=== PATIENT | male | born 1955 | race Caucasian/White ===

== ENCOUNTER 2017-09-06 10:12 | Inpatient (IN) | payer SELFPAY ==
[2017-09-06] VITALS (10 sets, daily range): BP systolic 150–211; BP diastolic 70–123; PULSE 68–91; RESP 17–19; TEMP 98–99; O2SAT 94–96
[~2017-09-06] VITALS: Ht 162.6 cm; Wt 94.5 kg
[~2017-09-06 10:12] MED LIST: ADVI200C9
--- NOTE | 2017-09-06 10:28 | PD ---
HPI Chief Complaint: Head Injury Time Seen by Provider: 10:13 Travel History International Travel<30 days: No Contact w/Intl Traveler<30days: No Traveled to known affect area: No History of Present Illness HPI This patient was found by his sister lying supine on the floor of their home. Patient drinks at least a case of beer daily. He did not drink today but drank yesterday. He does not know what happened to him or why he fell. He complains of headache. He denies blood thinners or aspirin therapy. Symptoms are severe. He is brought in emergently by paramedics. This fall was unwitnessed. No alleviating factors. Symptoms exacerbated by his alcoholism. Duration 1 hour. PFSH Past Medical History Autoimmune Disease: No Bipolar Disorder: Yes Hepatitis: Yes (HEP C) Hypertension: Yes ?: Not Past Surgical History Abdominal Surgery: Yes (SPLEEN REMOVED) Cardiac Surgery: No Ear Surgery: No Endocrine Surgery: No Eye Surgery: No Genitourinary Surgery: No Gynecologic Surgery: No Oral Surgery: No Thoracic Surgery: No Social History Alcohol Use: Yes (6 PK PER DAY X 40 YEARS) Tobacco Use: No Substance Use: Yes (HX COCAINE & CRACK (NOT TOO LONG AGO)) Allergies-Medications (Allergen,Severity, Reaction): Coded Allergies: meperidine (Unverified Allergy, Severe, Nausea/Vomiting, 09/06/17) Reported Meds & Prescriptions Reported Meds & Active Scripts Active No Active Prescriptions or Reported Medications Review of Systems General / Constitutional: No: Fever Eyes: No: Visual changes HENT: Positive: Headaches Cardiovascular: No: Chest Pain or Discomfort Respiratory: No: Shortness of Breath Gastrointestinal: No: Abdominal Pain Genitourinary: No: Dysuria Musculoskeletal: No: Pain Skin: No Rash Neurologic: Positive: Headache, No: Weakness Psychiatric: Positive: Substance Abuse, No: Depression Endocrine: No: Polydipsia Hematologic/Lymphatic: No: Easy Bruising Physical Exam Narrative GENERAL: Well-nourished, well-developed patient with headache and head injury and some lethargy. SKIN: Focused skin assessment reveals no rash and nodules. Skin is Warm and dry. HEAD: Has a swollen area with abrasion on the left forehead. Normocephalic. EYES: Pupils equal and round. No scleral icterus. No injection or drainage. ENT: No nasal bleeding or discharge. Mucous membranes pink and moist. Poor dentition. He's got ecchymosis to the tongue. NECK: Trachea midline. No JVD. C-collar maintained CARDIOVASCULAR: Regular rate and rhythm. No murmur appreciated. RESPIRATORY: No accessory muscle use. Clear to auscultation. Breath sounds equal bilaterally. GASTROINTESTINAL: Abdomen soft, non-tender, nondistended. Hepatic and splenic margins not palpable. MUSCULOSKELETAL: No obvious deformities. No clubbing. No cyanosis. No edema. NEUROLOGICAL: Awake and answering questions but a bit lethargic. No obvious cranial nerve deficits. Motor grossly within normal limits. Normal speech. GCS 15 PSYCHIATRIC: Appropriate mood and affect; insight and judgment poor . Data Data Last Documented VS Vital Signs Date Time Temp Pulse Resp B/P (MAP) Pulse Ox O2 Delivery O2 Flow Rate FiO2 09/06/17 12:00 71 186/105 (132) 09/06/17 10:23 17 96 Nasal Cannula 2.00 09/06/17 10:14 98.0 Orders Orders Iv Access Insert/Monitor (09/06/17 10:20) Complete Blood Count With Diff (09/06/17 10:20) Comprehensive Metabolic Panel (09/06/17 10:20) Prothrombin Time / Inr (Pt) (09/06/17 10:20) Act Partial Throm Time (Ptt) (09/06/17 10:20) Alcohol (Ethanol) (09/06/17 10:20) Ct Brain W/O Iv Contrast(Rout) (09/06/17 ) Ct Cerv Spine W/O Contrast (09/06/17 ) Chest, Single Ap (09/06/17 ) Pelvis, Ap Only (Routine) (09/06/17 ) Service Center Technician / Telemetry [email or web address] (09/06/17 10:20) Oximetry (09/06/17 ) Oxygen Administration (09/06/17 10:20) Electrocardiogram (09/06/17 ) Labetalol Inj (Trandate Inj) (09/06/17 11:30) Lorazepam Inj (Ativan Inj) (09/06/17 11:45) Admit Order (Ed Use Only) (09/06/17 12:48) Labs Laboratory Tests Test 09/06/17 10:20 White Blood Count 9.6 TH/MM3 Red Blood Count 5.10 MIL/MM3 Hemoglobin 16.7 GM/DL Hematocrit 48.6 % Mean Corpuscular Volume 95.3 FL Mean Corpuscular Hemoglobin 32.7 PG Mean Corpuscular Hemoglobin Concent 34.3 % Red Cell Distribution Width 14.1 % Platelet Count 231 TH/MM3 Mean Platelet Volume 8.3 FL Neutrophils (%) (Auto) 59.6 % Lymphocytes (%) (Auto) 28.1 % Monocytes (%) (Auto) 11.3 % Eosinophils (%) (Auto) 0.0 % Basophils (%) (Auto) 1.0 % Neutrophils # (Auto) 5.7 TH/MM3 Lymphocytes # (Auto) 2.7 TH/MM3 Monocytes # (Auto) 1.1 TH/MM3 Eosinophils # (Auto) 0.0 TH/MM3 Basophils # (Auto) 0.1 TH/MM3 CBC Comment DIFF FINAL Differential Comment Prothrombin Time 11.3 SEC Prothromb Time International Ratio 1.1 RATIO Activated Partial Thromboplast Time 24.0 SEC Blood Urea Nitrogen 12 MG/DL Creatinine 1.34 MG/DL Random Glucose 219 MG/DL Total Protein 7.6 GM/DL Albumin 3.8 GM/DL Calcium Level 9.0 MG/DL Alkaline Phosphatase 117 U/L Aspartate Amino Transf (AST/SGOT) 293 U/L Alanine Aminotransferase (ALT/SGPT) 258 U/L Total Bilirubin 1.2 MG/DL Sodium Level 144 MEQ/L Potassium Level 2.8 MEQ/L Chloride Level 108 MEQ/L Carbon Dioxide Level 22.6 MEQ/L Anion Gap 13 MEQ/L Estimat Glomerular Filtration Rate 54 ML/MIN Ethyl Alcohol Level LESS THAN 3 MG/DL MDM Medical Decision Making Medical Screen Exam Complete: Yes Emergency Medical Condition: Yes Medical Record Reviewed: Yes Differential Diagnosis Intracranial hemorrhage, skull fracture, alcohol withdrawal seizure Narrative Course I have reviewed the patient's electronic medical record. IV placed CBC is normal Metabolic profile shows hypokalemia of 2.8 LFTs shows elevated LFTs Coagulation studies are normal Alcohol level is negative Brain CT is negative for cranial hemorrhage Cervical spine CT is suspicious for a type III odontoid fracture, chronicity unknown I reviewed his chest x-ray which is negative I reviewed his pelvis x-ray which is negative Patient is complex. He will require inpatient admission. I reviewed with the medical residents will admit. I also spoke with neurosurgeon Dr. Moraes will be a immigration consultant. He recommends maintaining the patient in a [place] collar and obtaining an MRI I reviewed this with the residents who will do that They will also replace his potassium. He is neurologically intact at this time. Initial blood pressure 200 systolic after labetalol is 180 systolic I did give him a dose of Ativan Diagnosis Primary Impression: Syncope Qualified Codes: R55 - Syncope and collapse Additional Impressions: Alcohol withdrawal seizure with complication Odontoid fracture with type III morphology Qualified Codes: S12.120A - Other displaced dens fracture, initial encounter for closed fracture Hypokalemia Admitting Information Admitting Physician Requests: Admit Scripts No Active Prescriptions or Reported Meds Vadim Babin MD Sep 06, 2017 10:28
[2017-09-06 10:43] LABS: AUTOMATED NEUTROPHIL # 5.7 TH/MM3 (1.8-7.7); BASOPHIL # 0.1 TH/MM3 (0-0.2); HEMATOCRIT 48.6 % (39.0-51.0); HEMOGLOBIN 16.7 GM/DL (13.0-17.0); LYMPH % 28.1 % (9.0-44.0); LYMPHOCYTE # 2.7 TH/MM3 (1.0-4.8); MEAN CELL VOLUME 95.3 FL (80.0-100.0); MEAN CORPUSCULAR HEMOGLOBIN 32.7 PG (27.0-34.0); MEAN CORPUSCULAR HGB CONC 34.3 % (32.0-36.0); MEAN PLATELET VOLUME 8.3 FL (7.0-11.0); MONO % 11.3 % (0.0-8.0); MONOCYTE # 1.1 TH/MM3 (0-0.9); NEUT % 59.6 % (16.0-70.0); PLATELET COUNT 231 TH/MM3 (150-450); RED CELL DISTRIBUTION WIDTH 14.1 % (11.6-17.2); WHITE BLOOD COUNT 9.6 TH/MM3 (4.0-11.0)
[2017-09-06 10:52] LABS: INTERNATIONAL NORMALIZED RATIO 1.1 RATIO; PROTHROMBIN TIME - PATIENT 11.3 SEC (9.8-11.6)
--- NOTE | 2017-09-06 10:52 | RADRPT ---
EXAM DATE/TIME: 09/06/2017 10:33 [facility] COMPARISON: No previous studies available for comparison. INDICATIONS : Pain from fall. MEDICAL HISTORY : None. SURGICAL HISTORY : None. ENCOUNTER: Initial ACUITY: 1 day PAIN SCORE: 4/10 LOCATION: Bilateral pelvis FINDINGS: A single frontal view of the pelvis demonstrates no evidence of fracture. The bony pelvic ring is in tact. Bony mineralization is normal. The soft tissues are intact. Degenerative changes are noted in volving hip joints bilaterally. CONCLUSION: No acute fracture or dislocation. Degenerative changes are noted involving the hip mora ints bilaterally. Huey Key MD on September 06, 2017 at 10:49 Board Certified Radiologist. This report was verified electronically.
--- NOTE | 2017-09-06 10:53 | RADRPT ---
EXAM DATE/TIME: 09/06/2017 10:36 [facility] COMPARISON: No previous studies available for comparison. INDICATIONS : Shortness of breath and nausea. MEDICAL HISTORY : None. SURGICAL HISTORY : None. ENCOUNTER: Initial ACUITY: 1 day PAIN SCORE: 0/10 LOCATION: Bilateral chest FINDINGS: The heart is mildly enlarged. Mild increased interstitial markings are noted consistent with mild con gestion or infiltrates. Degenerative changes are noted throughout the thoracic spine. CONCLUSION: 1. Mild increased interstitial markings consistent with mild congestion or infiltrates. 2. Mild cardiomegaly. Huey Key MD on September 06, 2017 at 10:50 Board Certified Radiologist. This report was verified electronically.
[2017-09-06 11:08] LABS: ALBUMIN 3.8 GM/DL (3.4-5.0); ALKALINE PHOSPHATASE 117 U/L (45-117); ALT (GPT) 258 U/L (12-78); AST (GOT) 293 U/L (15-37); BICARBONATE 22.6 MEQ/L (21.0-32.0); BLOOD UREA NITROGEN 12 MG/DL (7-18); CHLORIDE 108 MEQ/L (98-107); CREATININE 1.34 MG/DL (0.60-1.30); GLOMERULAR FILTRATION RATE 54 ML/MIN (>89); GLUCOSE,RANDOM 219 MG/DL (74-106); SODIUM (NA) 144 MEQ/L (136-145); TOTAL BILIRUBIN ADULT 1.2 MG/DL (0.2-1.0); TOTAL PROTEIN 7.6 GM/DL (6.4-8.2)
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
[2017-09-06] MEDS ORDERED: LABETALOL HCL 100 MG/20 ML VIAL IV PUSH ONE (11:30)
[2017-09-06] MEDS ORDERED: LORazepam 2 MG/ML VIAL IV PUSH ONE (11:45)
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
--- NOTE | 2017-09-06 12:37 | EKG ---
Date Performed: 09/06/2017 Time Performed: 10:24:28 PTAGE: 62 years EKG: Sinus rhythm MODERATE INTRAVENTRICULAR CONDUCTION DELAY MODERATE ST DEPRESSION ABNORMAL ECG NO PREVIOUS TRACING DOCTOR: Link Donaldson Interpretating Date/Time 09/06/2017 12:37:43
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
[2017-09-06] MEDS ORDERED: ONDANSETRON HCL 4 MG/2 ML VIAL IVP PRN (14:15)
[2017-09-06] MEDS ORDERED: BISACODYL 10 MG SUPP RECTAL PRN (14:15)
[2017-09-06] MEDS ORDERED: FLUMAZENIL 0.5 MG/5 ML VIAL IV PUSH PRN (14:15)
[2017-09-06] MEDS ORDERED: NALOXONE HCL 0.4 MG/ML AMP IV PUSH PRN ×2 (14:15→14:45)
[2017-09-06] MEDS ORDERED: LORazepam 2 MG/ML VIAL IV PUSH PRN ×4 (14:15)
[2017-09-06] MEDS ORDERED: LACTULOSE SYRUP 20 GM/30 ML CUP PO PRN (14:15)
[2017-09-06] MEDS ORDERED: LORazepam 2 MG TAB PO PRN (14:15)
[2017-09-06] MEDS ORDERED: MAGNESIUM HYDROXIDE SUSP 30 ML CUP PO PRN (14:15)
[2017-09-06] MEDS ORDERED: LORazepam 1 MG TAB PO PRN (14:15)
[2017-09-06] MEDS ORDERED: SENNOSIDES 8.6 MG TAB PO PRN (14:15)
[2017-09-06] MEDS ORDERED: SODIUM CHLORIDE 0.9% FLUSH 10 ML FLUSH IV FLUSH PRN (14:15)
[2017-09-06] MEDS ORDERED: MORPHINE SULFATE 2 MG/ML INJ IV PUSH PRN (14:45)
[2017-09-06] MEDS ORDERED: ENALAPRILAT 2.5 MG/2 ML VIAL IV PUSH PRN (15:00)
[2017-09-06] MEDS ORDERED: SODIUM CHLOR 0.9% 1000 ML INJ 1,000 ML IV SCH (15:15)
[2017-09-06] MEDS ORDERED: hydrALAZINE HCL 20 MG/ML VIAL IV PUSH PRN (16:00)
--- NOTE | 2017-09-06 16:18 | RADRPT ---
EXAM DATE/TIME: 09/06/2017 14:56 [facility] COMPARISON: CT CERVICAL SPINE W/O CONTRAST, September 06, 2017, 11:10. INDICATIONS : Fall, odontoid fracture. MEDICAL HISTORY : Hepatitis C. SURGICAL HISTORY : Hemorrhoidectomy. Facial and orthopedic surgery. ENCOUNTER: Initial ACUITY: 1 day PAIN SCORE: 3/10 LOCATION: Paraspinal TECHNIQUE: Multiplanar, multisequence MRI examination of the cervical spine was performed. FINDINGS: Sagittal images demonstrate normal vertebral body alignment and curvature. Nondisplaced fracture of t he odontoid is identified. No epidural hematoma is identified.. No focal areas of marrow replacement are identified. The craniocervical junction appears normal. The cord itself is normal in caliber and signal intensity. Axial images were performed from C2-3 through C7-T1. C2-C3: No significant abnormalities identified. C3-C4: No significant abnormalities identified. C4-C5: A central to right sided disc protrusion is present impinging on the thecal sac. There is no signific ant spinal canal stenosis. The neural foramina are clear bilaterally. C5-C6: There is uncovertebral joint hypertrophy on the right side. This compromises the exiting right-sided nerve root exit zone. There is mild right sided neural foraminal narrowing. C6-C7: No significant abnormalities identified. C7-T1: No significant abnormalities identified. CONCLUSION: 1. Nondisplaced fracture odontoid without evidence of epidural hematoma or cord contusion 2. Small right-sided protrusion at C4-C5 Kelton Saravia MD on September 06, 2017 at 15:52 Board Certified Radiologist. This report was verified electronically.
[2017-09-06] MEDS: THIAMINE INJ 100 MG in SODIUM CHLORIDE 0.9% INJ 100 ML IV SCH (19:05)
[2017-09-06] MEDS: MULTIVITAMIN INJ 10 ML, FOLIC ACID INJ 1 MG in SODIUM CHLORID 0.9% 500 ML INJ 500 ML IV SCH (19:05)
--- NOTE | 2017-09-06 19:34 | RADRPT ---
EXAM DATE/TIME: 09/06/2017 19:13 [facility] COMPARISON: No previous studies available for comparison. INDICATIONS : Trauma; fall. RADIATION DOSE: ; Reconstructed from previous dataset, no dose MEDICAL HISTORY : Hypertension. Hepatitis C. SURGICAL HISTORY : Splenectomy. ENCOUNTER: Initial ACUITY: 2 days PAIN SCALE: 6/10 LOCATION: lower back TECHNIQUE: Volumetric scanning of the lumbar spine was performed. Multiplanar reconstructions in the sagittal, coronal and oblique axial planes were performed. Using automated exposure control and adjustment of the mA and/or kV according to patient size, radiation dose was kept as low as reasonably achievable t o obtain optimal diagnostic quality images. DICOM format image data is available electronically for review and comparison. FINDINGS: VERTEBRAE: Normal vertebral body height. ALIGNMENT: No evidence of subluxation. T12-L1: The thecal sac has a normal diameter. No evidence of disc bulge or protrusion. The neural foramina are patent bilaterally. L1-L2: The thecal sac has a normal diameter. No evidence of disc bulge or protrusion. The neural foramina are patent bilaterally. L2-L3: The thecal sac has a normal diameter. No evidence of disc bulge or protrusion. The neural foramina are patent bilaterally. L3-L4: The thecal sac has a normal diameter. No evidence of disc bulge or protrusion. The neural foramina are patent bilaterally. L4-L5: The thecal sac has a normal diameter. No evidence of disc bulge or protrusion. The neural foramina are patent bilaterally. L5-S1: Moderate to severe degenerative disc disease with disc space narrowing, mild endplate eburnation, end plate sclerosis and marginal spondylosis. There is no suggest radiation, foraminal encroachment or sp inal stenosis. CONCLUSION: 1. Moderate to severe degenerative disc disease at L5-S1. 2. Otherwise unremarkable CT of the lumbar spine. 3. No evidence of acute process Edgar Sloan MD on September 06, 2017 at 19:30 Board Certified Radiologist. This report was verified electronically.
--- NOTE | 2017-09-06 19:37 | RADRPT ---
EXAM DATE/TIME: 09/06/2017 19:13 [facility] COMPARISON: No previous studies available for comparison. INDICATIONS : Trauma; fall. ORAL CONTRAST: No oral contrast ingested. RADIATION DOSE: 15.88 CTDIvol (mGy) MEDICAL HISTORY : Hypertension. Hepatitis C. ETOH abuse SURGICAL HISTORY : Splenectomy. ENCOUNTER: Initial ACUITY: 1 day PAIN SCALE: 6/10 LOCATION: abdomen TECHNIQUE: Volumetric scanning of the abdomen and pelvis was performed. Using automated exposure control and ad justment of the mA and/or kV according to patient size, radiation dose was kept as low as reasonably achievable to obtain optimal diagnostic quality images. DICOM format image data is available electro nically for review and comparison. FINDINGS: LOWER LUNGS: Mild pleural thickening and compressive atelectasis is identified in the lung a cyst. LIVER: Homogeneous density without lesion. There is no dilation of the biliary tree. No calcified gallston es. SPLEEN: Mild scarring is identified in the spleen. PANCREAS: Within normal limits. KIDNEYS: Normal in size and shape. There is no mass, stone, or hydronephrosis. ADRENAL GLANDS: Within normal limits. VASCULAR: There is no aortic aneurysm. BOWEL/MESENTERY: The stomach, small bowel, and colon demonstrate no acute abnormality. There is no free intraperitone al air or fluid. ABDOMINAL WALL: Within normal limits. RETROPERITONEUM: There is no lymphadenopathy. BLADDER: No wall thickening or mass. REPRODUCTIVE: Within normal limits. INGUINAL: There is no lymphadenopathy or hernia. MUSCULOSKELETAL: Within normal limits for patient age. CONCLUSION: 1. Mild pleural thickening and compressive atelectasis in the lung bases. 2. No evidence of acute process in the abdomen or pelvis. Edgar Sloan MD on September 06, 2017 at 19:33 Board Certified Radiologist. This report was verified electronically.
[2017-09-06] MEDS: DOCUSATE SODIUM 50 MG/SENNA 8.6 MG TAB PO SCH (21:00)
[2017-09-06] MEDS: SODIUM CHLORIDE 0.9% FLUSH 10 ML FLUSH IV FLUSH SCH (21:00)
[2017-09-06 21:25] LABS: HEMATOCRIT 47.7 % (39.0-51.0); HEMOGLOBIN 16.1 GM/DL (13.0-17.0)
[2017-09-06] MEDS: MORPHINE SULFATE 2 MG/ML INJ IV PUSH PRN (22:41)
[2017-09-06 23:19] LABS: BICARBONATE 27.8 MEQ/L (21.0-32.0); CALCIUM 8.8 MG/DL (8.5-10.1); CREATININE 1.7 MG/DL (0.60-1.30)
[2017-09-06] MEDS ORDERED: cloNIDine HCL 0.1 MG TAB PO PRN (23:45)
[2017-09-07] VITALS (12 sets, daily range): BP systolic 158–192; BP diastolic 88–100; PULSE 66–88; RESP 17–22; TEMP 97.8–98; O2SAT 92–95
[2017-09-07] MEDS: POTASSIUM CHLORIDE INJ 10 MEQ in SODIUM CHLOR 0.9% 1000 ML INJ 1,000 ML IV SCH ×4 (00:50→23:28)
[2017-09-07] MEDS: MORPHINE SULFATE 2 MG/ML INJ IV PUSH PRN ×3 (02:54→11:42)
[2017-09-07 07:25] LABS: BACTERIA, URINE OCC /hpf; BILIRUBIN, URINE NEG (NEG); BLOOD, URINE NEG (NEG); GLUCOSE,URINE NEG (NEG); HYALINE CAST, URINE 6 /lpf (RARE); KETONE, URINE NEG (NEG); MUCUS URINE FEW /lpf (OCC); NITRITE,URINE NEG (NEG); PH, URINE 5.5 (5.0-8.5); SQUAMOUS EPITHELIAL CELL URINE 1 /hpf (0-5); URINE COLOR YELLOW (YELLW/STRAW); URINE LEUKOCYTE ESTERASE NEG (NEG)
[2017-09-07] MEDS: DOCUSATE SODIUM 50 MG/SENNA 8.6 MG TAB PO SCH ×2 (08:07→21:09)
[2017-09-07] MEDS: SODIUM CHLORIDE 0.9% FLUSH 10 ML FLUSH IV FLUSH SCH ×2 (08:08→21:00)
[2017-09-07 08:17] LABS: ALBUMIN 3.4 GM/DL (3.4-5.0); ALKALINE PHOSPHATASE 105 U/L (45-117); ALT (GPT) 216 U/L (12-78); AST (GOT) 255 U/L (15-37); BICARBONATE 27.3 MEQ/L (21.0-32.0); BLOOD UREA NITROGEN 21 MG/DL (7-18); CALCIUM 8.3 MG/DL (8.5-10.1); CHLORIDE 107 MEQ/L (98-107); CREATININE 1.83 MG/DL (0.60-1.30); GLOMERULAR FILTRATION RATE 37 ML/MIN (>89); GLUCOSE,RANDOM 92 MG/DL (74-106); SODIUM (NA) 145 MEQ/L (136-145); TOTAL BILIRUBIN ADULT 1.4 MG/DL (0.2-1.0); TOTAL PROTEIN 7.1 GM/DL (6.4-8.2)
[2017-09-07] MEDS ORDERED: LABETALOL HCL 100 MG/20 ML VIAL IV PUSH SCH (09:00)
--- NOTE | 2017-09-07 10:01 | PD.CONS ---
(Dimitris Moraes MD) HPI Consult Requested By Primary Care Physician No Primary Care Physician (Dimitris Moraes MD) Service NRS Consult Requested By Dr. Ward Reason for Consult C2 fracture History of Present Illness Mr. Zuleta is a 62-year-old male with a history of alcohol abuse and seizure disorder. He has been heavily drinking, there is report of generalized shaking and loss of consciousness with a ground-level fall. His sister found the patient on the floor this oriented. He was taken to [place] ED and workup shows a nondisplaced odontoid fracture through base of the dens, MRI C- spine without evidence of cord compromise. He is currently immobilized by a hard collar. He complains of some cervical pain which is controlled. He denies focal weakness, dysesthesias to his extremities, bowel or bladder incontinence, fevers or chills. Neurosurgical evaluation is requested. (Dianne Coronado) Review of Systems Constitutional: DENIES: Fever, Chills Eyes: DENIES: Diplopia Respiratory: DENIES: Apneas, Hemoptysis, Shortness of breath Cardiovascular: COMPLAINS OF: Syncope Gastrointestinal: DENIES: Abdominal pain, Nausea, Vomiting Genitourinary: DENIES: Urinary incontinence Musculoskeletal: COMPLAINS OF: Neck pain Neurologic: COMPLAINS OF: Seizures, DENIES: Localized weakness (Dianne Coronado) Past Family Social History Allergies: Coded Allergies: meperidine (Unverified Allergy, Severe, Nausea/Vomiting, 09/06/17) Past Medical History Alcohol Abuse Seizure disorder Hypertension Hepatitic C Cirrhosis Past Surgical History No report of prior surgery Reported Medications reviewed in EMR Active Ordered Medications Current Medications Medications (Trade) Dose Ordered Sig/Rosendo Route PRN Reason Start Time Stop Time Status Last Admin Dose Admin Sodium Chloride (NS Flush) 2 ml UNSCH PRN IV FLUSH FLUSH AFTER USING IV ACCESS 09/06/17 14:15 Sodium Chloride (NS Flush) 2 ml BID IV FLUSH 09/06/17 21:00 09/07/17 08:08 Ondansetron HCl (Zofran Inj) 4 mg Q6H PRN IVP NAUSEA OR VOMITING 09/06/17 14:15 Naloxone HCl (Narcan Inj) 0.4 mg UNSCH PRN IV PUSH SEE LABEL COMMENTS 09/06/17 14:15 Senna/Docusate Sodium (Elvira-Colace) 1 tab BID PO 09/06/17 21:00 09/07/17 08:07 Magnesium Hydroxide (Milk Of Magnesia Liq) 30 ml Q12H PRN PO Mild constipation 09/06/17 14:15 Sennosides (Senokot) 17.2 mg Q12H PRN PO Moderate constipation 09/06/17 14:15 Bisacodyl (Dulcolax Supp) 10 mg DAILY PRN RECTAL SEVERE CONSITIPATION 09/06/17 14:15 Lactulose (Lactulose Liq) 30 ml DAILY PRN PO SEVERE CONSITIPATION 09/06/17 14:15 Flumazenil (Romazicon Inj) 0.2 mg Q1M PRN IV PUSH SEE LABEL COMMENTS 09/06/17 14:15 Lorazepam (Ativan) 1 mg Q4H PRN PO CIWA 8 - 10 09/06/17 14:15 Lorazepam (Ativan Inj) 1 mg Q4H PRN IV PUSH CIWA 8 - 10 09/06/17 14:15 Lorazepam (Ativan) 2 mg Q2H PRN PO CIWA 11-14 09/06/17 14:15 Lorazepam (Ativan Inj) 2 mg Q2H PRN IV PUSH CIWA 11-14 09/06/17 14:15 Lorazepam (Ativan Inj) 2 mg Q1H PRN IV PUSH CIWA 15-20 09/06/17 14:15 Lorazepam (Ativan Inj) 2 mg Q15M PRN IV PUSH CIWA > 20 09/06/17 14:15 Morphine Sulfate (Morphine Inj) 4 mg Q3H PRN IV PUSH Pain 6-10;if unable to take PO 09/06/17 14:45 09/07/17 11:42 Morphine Sulfate (Morphine Inj) 4 mg Q1H PRN IV PUSH BREAKTHOUGH PAIN 09/06/17 14:45 Oxycodone HCl (Roxicodone) 5 mg Q4H PRN PO PAIN SCALE 3 TO 5 09/06/17 14:45 Naloxone HCl (Narcan Inj) 0.4 mg UNSCH PRN IV PUSH SEE LABEL COMMENTS 09/06/17 14:45 Multivitamins 10 ml/Folic Acid 1 mg/Sodium Chloride 510.2 ml @ 125 mls/hr Q24H IV 09/06/17 18:00 09/11/17 17:59 09/06/17 19:05 Thiamine HCl 100 mg/Sodium Chloride 101 ml @ 100 mls/hr Q24H IV 09/06/17 17:00 09/09/17 16:59 09/06/17 19:05 Thiamine HCl (Vitamin B1) 100 mg DAILY PO 09/10/17 09:00 Potassium Chloride 10 meq/ Sodium Chloride 1,005 ml @ 125 mls/hr Q8H3M IV 09/06/17 16:00 09/07/17 09:20 Enalaprilat (Vasotec Inj) 2.5 mg Q6H PRN IV PUSH SBP>160, DBP>90 09/07/17 10:00 09/07/17 11:42 Potassium Chloride (KCl) 20 meq TID PO 09/07/17 13:00 09/07/17 12:39 Lisinopril (Prinivil) 10 mg DAILY PO 09/07/17 12:15 09/07/17 12:39 Family History Father - prostate CA Sister- Diabetes Mellitus, Cervical CA Father, prostate CA History of breast and ovarian CA in mother's side Social History chronic heavy etoh abuse, denies tobacco and illicit drug use lives with sister (Dianne Coronado) Physical Exam Vital Signs Vital Signs Date Time Temp Pulse Resp B/P (MAP) Pulse Ox O2 Delivery O2 Flow Rate FiO2 09/07/17 08:28 98.0 75 18 186/99 (128) 94 09/07/17 07:17 92 21 09/07/17 06:58 98.0 79 18 172/88 (116) 94 09/07/17 03:48 72 09/06/17 23:44 87 09/06/17 23:19 98.5 88 18 162/81 (108) 94 09/06/17 23:04 89 150/72 (98) 09/06/17 22:48 91 152/70 (97) 09/06/17 21:39 99.0 70 19 183/97 (125) 96 09/06/17 17:15 09/06/17 13:12 68 185/105 (131) 09/06/17 12:00 71 186/105 (132) 09/06/17 11:46 68 185/100 (128) 09/06/17 11:24 76 211/123 (152) 09/06/17 10:23 17 96 Nasal Cannula 2.00 09/06/17 10:14 98.0 88 17 201/114 (143) 96 Physical Exam Mr. Zuleta is alert, awake and oriented to time, place and person. Speech is fluent. Higher cognitive functions are normal. Cranial nerve examination demonstrates the pupils to be equal, round, and reactive to light. Extra-ocular movements are intact. Facial motor and sensory function are normal and symmetrical. Gross hearing is intact, bilaterally. The uvula is midline and elevates symmetrically with the soft palate. Sternocleidomastoid and trapezius muscles have normal and symmetrical strength. Other cranial nerves are intact. His cervical spine is immobilized by hard collar. Muscle testing reveals normal bulk and tone overall without rigidity, spasticity , fasciculations, or atrophy. Muscle strength is 5/5 in all muscle groups of both upper extremities including deltoid, biceps, triceps, brachioradialis, wrist extension and transition of care specialist. In the lower extremities, strength is 5/5 in both iliopsoas, quadriceps, hamstrings, plantar flexion, dorsiflexion, and extensor hallicus longus. He has missing toes #3-5 left foot. Sensory examination is intact to light touch in both the upper and lower extremities, symmetrically. Deep tendon reflexes are 2+ and symmetrical in the biceps, triceps, and brachioradialis, bilaterally, in the upper extremities. In the lower extremities , the patellar and Achilles are 2+, bilaterally. There is a bilateral plantar flexion response. Hoffmanns sign is negative. There is no clonus. Cerebellar examination is intact to [id number] test Lungs are clear, without wheezing Heart regular rhythm and regular rate Skin is warm and dry, without lesions Laboratory Laboratory Tests Test 09/06/17 10:20 09/06/17 20:15 09/06/17 22:40 09/07/17 04:48 White Blood Count 9.6 Red Blood Count 5.10 Hemoglobin 16.7 16.1 Hematocrit 48.6 47.7 Mean Corpuscular Volume 95.3 Mean Corpuscular Hemoglobin 32.7 Mean Corpuscular Hemoglobin Concent 34.3 Red Cell Distribution Width 14.1 Platelet Count 231 Mean Platelet Volume 8.3 Neutrophils (%) (Auto) 59.6 Lymphocytes (%) (Auto) 28.1 Monocytes (%) (Auto) 11.3 Eosinophils (%) (Auto) 0.0 Basophils (%) (Auto) 1.0 Neutrophils # (Auto) 5.7 Lymphocytes # (Auto) 2.7 Monocytes # (Auto) 1.1 Eosinophils # (Auto) 0.0 Basophils # (Auto) 0.1 CBC Comment DIFF FINAL Differential Comment Prothrombin Time 11.3 Prothromb Time International Ratio 1.1 Activated Partial Thromboplast Time 24.0 Blood Urea Nitrogen 12 19 21 Creatinine 1.34 1.70 1.83 Random Glucose 219 130 92 Total Protein 7.6 7.1 Albumin 3.8 3.4 Calcium Level 9.0 8.8 8.3 Alkaline Phosphatase 117 105 Aspartate Amino Transf (AST/SGOT) 293 255 Alanine Aminotransferase (ALT/SGPT) 258 216 Total Bilirubin 1.2 1.4 Sodium Level 144 147 145 Potassium Level 2.8 3.0 2.7 Chloride Level 108 109 107 Carbon Dioxide Level 22.6 27.8 27.3 Anion Gap 13 10 11 Estimat Glomerular Filtration Rate 54 41 37 Magnesium Level 1.9 Ethyl Alcohol Level LESS THAN 3 Troponin I LESS THAN 0.02 Test 09/07/17 06:28 Urine Color YELLOW Urine Turbidity CLEAR Urine pH 5.5 Urine Specific Franklin 1.008 Urine Protein 30 Urine Glucose (UA) NEG Urine Ketones NEG Urine Occult Blood NEG Urine Nitrite NEG Urine Bilirubin NEG Urine Urobilinogen LESS THAN 2.0 Urine Leukocyte Esterase NEG Urine RBC LESS THAN 1 Urine WBC 2 Urine Squamous Epithelial Cells 1 Urine Bacteria OCC Urine Hyaline Casts 6 Urine Mucus FEW (Dimitris Moraes MD) Physical Exam Mr. Zuleta is alert, awake and oriented to time, place and person. Speech is fluent. Higher cognitive functions are normal. Cranial nerve examination demonstrates the pupils to be equal, round, and reactive to light. Extra-ocular movements are intact. Facial motor and sensory function are normal and symmetrical. Gross hearing is intact, bilaterally. The uvula is midline and elevates symmetrically with the soft palate. Sternocleidomastoid and trapezius muscles have normal and symmetrical strength. Other cranial nerves are intact. Neck immobilized by hard collar. Muscle testing reveals normal bulk and tone overall without rigidity, spasticity , fasciculations, or atrophy. Muscle strength is 5/5 in all muscle groups of both upper extremities including deltoid, biceps, triceps, brachioradialis, wrist extension and transition of care specialist. In the lower extremities, strength is 5/5 in both iliopsoas, quadriceps, hamstrings, plantar flexion, dorsiflexion, and extensor hallicus longus. He has missing toes #3-5 left foot. Sensory examination is intact to light touch in both the upper and lower extremities, symmetrically. Deep tendon reflexes are 2+ and symmetrical in the biceps, triceps, and brachioradialis, bilaterally, in the upper extremities. In the lower extremities , the patellar and Achilles are 2+, bilaterally. There is a bilateral plantar flexion response. Hoffmanns sign is negative. There is no clonus. Cerebellar examination is intact to [id number] test (Dianne Coronado) Result Diagram: 09/06/17201409/07/17 0448 Imaging Last 48 hours Impressions Cervical Spine MRI 09/06/17 1432 Signed Impressions: Service Date/Time: Wednesday, September 06, 2017 14:56 - CONCLUSION: 1. Nondisplaced fracture odontoid without evidence of epidural hematoma or cord contusion 2. Small right-sided protrusion at C4-C5 Kelton Saravia MD Pelvis X-Ray 09/06/17 0000 Signed Impressions: Service Date/Time: Wednesday, September 06, 2017 10:33 - CONCLUSION: No acute fracture or dislocation. Degenerative changes are noted involving the hip joints bilaterally. Huey Key MD Lumbar Spine CT 09/06/17 0000 Signed Impressions: Service Date/Time: Wednesday, September 06, 2017 19:13 - CONCLUSION: 1. Moderate to severe degenerative disc disease at L5-S1. 2. Otherwise unremarkable CT of the lumbar spine. 3. No evidence of acute process Edgar Sloan MD Head CT 09/06/17 0000 Signed Impressions: Service Date/Time: Wednesday, September 06, 2017 11:10 - CONCLUSION: 1. No acute intracranial and rounded. 2. Mild periventricular and subcortical white matter small vessel ischemic changes bilaterally. 3. Small subgaleal hematoma along the left frontal skull. Huey Key MD Chest X-Ray 09/06/17 0000 Signed Impressions: Service Date/Time: Wednesday, September 06, 2017 10:36 - CONCLUSION: 1. Mild increased interstitial markings consistent with mild congestion or infiltrates. 2. Mild cardiomegaly. Huey Key MD Cervical Spine CT 09/06/17 0000 Signed Impressions: Service Date/Time: Wednesday, September 06, 2017 11:10 - CONCLUSION: 1. Type III nondisplaced odontoid fracture of indeterminate age. Clinical correlation is recommended. 2. Severe bilateral foraminal narrowing at C5-6 and C6-7. 3. Mild bilateral foraminal narrowing at C3-4 and C4-5. 4. Diffuse cervical spondylosis. 5. Scoliosis of the cervical spine is noted Huey Key MD Abdomen/Pelvis CT 09/06/17 0000 Signed Impressions: Service Date/Time: Wednesday, September 06, 2017 19:13 - CONCLUSION: 1. Mild pleural thickening and compressive atelectasis in the lung bases. 2. No evidence of acute process in the abdomen or pelvis. Edgar Sloan MD (Dimitris Moraes MD) Assessment and Plan Assessment and Plan Caprini VTE Risk Assessment: Mod/High Risk (score >= 2) Caprini Risk Assessment Model Point Value = 1 Point Value = 2 Point Value = 3 Point Value = 5 Age 41-60 Minor surgery BMI > 25 kg/m2 Swollen legs Varicose veins or History of unexplained or recurrent spontaneous Oral contraceptives or hormone replacement Sepsis (< 1 month) Serious lung disease, including pneumonia (< 1 month) Abnormal pulmonary function Acute myocardial infarction Congestive heart failure (< 1 month) History of inflammatory bowel disease Medical patient at bed rest Age 61-74 Arthroscopic surgery Major open surgery (> 45 min) Laparoscopic surgery (> 45 min) Malignancy Confined to bed (> 72 hours) Immobilizing plaster cast Central venous access Age >= 75 History of VTE Family history of VTE Factor V Leiden Prothrombin [id number] Lupus anticoagulant Anticardiolipin antibodies Elevated serum homocysteine Heparin-induced thrombocytopenia Other congenital or acquired thrombophilia Stroke (< 1 month) Elective arthroplasty Hip, pelvis, or leg fracture Acute spinal cord injury (< 1 month) Prophylaxis Regimen Total Risk Factor Score Risk Level Prophylaxis Regimen 0-1 Low Early ambulation 2 Moderate Order ONE of the following: *Sequential Compression Device (SCD) *Heparin 5000 units SQ BID 3-4 Higher Order ONE of the following medications: *Heparin 5000 units SQ TID *Enoxaparin/Lovenox 40 mg SQ daily (WT < 150 kg, CrCl > 30 mL/min) *Enoxaparin/Lovenox 30 mg SQ daily (WT < 150 kg, CrCl > 10-29 mL/min) *Enoxaparin/Lovenox 30 mg SQ BID (WT < 150 kg, CrCl > 30 mL/min) AND/OR *Sequential Compression Device (SCD) 5 or more Highest Order ONE of the following medications: *Heparin 5000 units SQ TID (Preferred with Epidurals) *Enoxaparin/Lovenox 40 mg SQ daily (WT < 150 kg, CrCl > 30 mL/min) *Enoxaparin/Lovenox 30 mg SQ daily (WT < 150 kg, CrCl > 10-29 mL/min) *Enoxaparin/Lovenox 30 mg SQ BID (WT < 150 kg, CrCl > 30 mL/min) AND *Sequential Compression Device (SCD) (Dimitris Moraes MD) Attending Statement Patient is a 62-year-old male with past medical history hypertension, seizures and alcohol use who presents to the emergency room via [facility] after suffering an unwitnessed seizure episode. C2 fracture Seizure with complication ICD Codes: F10.239 - I will obtain an EEG. Recommend neuro checks in a serial fashion. I reviewed the CT of the brain. If he suffered further seizures will start him on fosphenytoin Odontoid fracture with type III morphology ICD Codes: S12.120A - Other displaced dens fracture, initial encounter for closed fracture Status: Acute Recommend an MRI of the cervical spine. Immobility cessation of the cervical spine using a Osborne J collar Spoke to the patient and the family about his treatment course. I discussed with the patient the alternative of surgical versus non-surgical treatment. Would defer further recommendations to after MRI Syncope ICD Codes: R55 - Syncope and collapse Status: Acute Plan: Possibly due to alcohol withdrawal Will start syncope workup with carotid duplex, echocardiogram, cardiology evaluation and Holter monitoring ST changes on EKG Appreciate recommendations from cardiology Awaiting echocardiogram Hypokalemia ICD Codes: E87.6 - Hypokalemia Status: Acute I recommend potassium replacement Monitor electrolytes, protocol Arterial Hypertension ICD Codes: I10 - Essential (primary) hypertension Status: Chronic Start blood pressure control Monitor blood pressure Low back pain ICD Codes: M54.5 - Low back pain Status: Acute Plan: Will monitor Recommend antiinflammatories and physical therapy Alcohol abuse.Counseled on the importance of alcohol cessation Plan: [facility] cat, alcohol withdrawal protocol Nutrition. Tolerating Oral diet Renal. Continue to monitor closely urine output, BUN and creatinine Endocrine. Continue to Monitor serial Acu checks and SSI as needed ID continue to monitor for signs of infection Continue Protonix for stress ulcer prophylaxis Continue Inocencio hose and SCD's for DVT prophylaxis (Dimitris Moraes MD) Dimitris Moraes MD Sep 07, 2017 10:01 Dianne Coronado Sep 07, 2017 14:59
[2017-09-07 10:59] LABS: AUTOMATED NEUTROPHIL # 5.8 TH/MM3 (1.8-7.7); BASOPHIL # 0.1 TH/MM3 (0-0.2); BASOPHIL % 0.8 % (0.0-2.0); EOSINOPHIL % 0.1 % (0.0-4.0); HEMATOCRIT 45.7 % (39.0-51.0); LYMPH % 31.3 % (9.0-44.0); LYMPHOCYTE # 3.1 TH/MM3 (1.0-4.8); MEAN CELL VOLUME 95.5 FL (80.0-100.0); MEAN CORPUSCULAR HEMOGLOBIN 33.4 PG (27.0-34.0); MEAN PLATELET VOLUME 8.1 FL (7.0-11.0); MONOCYTE # 0.9 TH/MM3 (0-0.9); NEUT % 58.8 % (16.0-70.0); PLATELET COUNT 167 TH/MM3 (150-450); RED BLOOD COUNT 4.79 MIL/MM3 (4.50-5.90); RED CELL DISTRIBUTION WIDTH 13.4 % (11.6-17.2)
[2017-09-07 11:23] LABS: PHOSPHORUS 2.9 MG/DL (2.5-4.9)
[2017-09-07 11:24] LABS: MAGNESIUM 2.2 MG/DL (1.5-2.5)
[2017-09-07] MEDS: ENALAPRILAT 2.5 MG/2 ML VIAL IV PUSH PRN (11:42)
--- NOTE | 2017-09-07 12:22 | MB ---
cc: SYLVESTER WALL MD DATE OF CONSULTATION 09/07/2017 HISTORY This is a 62-year-old gentleman who was admitted to the hospital after suffering a syncopal episode. He apparently has a history of significant alcohol use and was drinking rather heavily until approximately three days prior to admission. He had some generalized shaking in its house for approximately 30 minutes and then lost consciousness. No prodrome was noted. Since his admission to hospital, CT scans for reveal a nondisplaced odontoid fracture in his C-spine and a very small subdural hematoma. He is now awake and alert. He is a good historian. He denies any prior history of heart disease except that he has had problems with palpitations over the past year. This was noted as often as once a week and is described as a short burst of a rapid heartbeat usually prior to going to bed at night. It is not associated with shortness of breath, chest pain, dizziness or light headedness and no other episodes of syncope has been present. He has noted chest pain over the past year which occurs on a daily basis one to two times per day. This lasts for only seconds at a time. No real exertional chest discomfort has been present. He has noted exertional shortness of breath. No orthopnea or PND has been present. We do note that his blood pressures have been significantly elevated since his admission to the hospital and it is noted he has had hypertension in the past. MEDICATIONS He currently takes no medications. SOCIAL HISTORY The patient does not smoke or use recreational drugs. Alcohol use is as above. PHYSICAL EXAM On physical exam now, his blood pressure is 180/70, pulse is 70 and regular. NECK: There is no neck vein distension. LUNGS: Essentially clear. CARDIOVASCULAR: Exam reveals a regular rate and rhythm. No murmur or gallop is noted. ABDOMEN: Soft. There is no tenderness. EXTREMITIES: Reveal no edema. I do note his electrocardiogram reveals sinus rhythm. There is very minor nonspecific ST-segment changes. LABORATORY DATA Review of his lab reveals a significantly low potassium level at 2.7 with mild to moderate renal dysfunction with a creatinine of 1.83. Both AST and ALT are elevated, as well as a mild elevation in his bilirubin. Troponin was essentially normal. ASSESSMENT/PLAN The patient has had nonspecific ST-segment changes on his electrocardiogram which are very minor. They maybe secondary to his hypokalemia, we will aggressively replace that. In view of his long alcohol use and shortness of breath on exertion, we ordered an echocardiogram to assess his LV function and I have begun him on lisinopril to help to better control his blood pressure. Certainly will need to be watched closely for signs of alcohol withdrawal. He is on telemetry and will also watch carefully for any signs of arrhythmia at night. MD JUICE Clement/KILEY /11:51 AM /12:01 PM
[2017-09-07 12:35] LABS: HEPATITIS A AB IGM NEGATIVE (NEGATIVE); HEPATITIS B CORE AB IGM NEGATIVE (NEGATIVE); HEPATITIS B SURFACE ANTIGEN NEGATIVE (NEGATIVE); HEPATITIS C AB IgG REACTIVE (NEGATIVE)
[2017-09-07] MEDS: POTASSIUM CHLORIDE 20 MEQ CONTROLLED RELEASE TAB PO SCH ×2 (12:39→17:07)
[2017-09-07] MEDS: LISINOPRIL 10 MG TAB PO SCH (12:39)
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
[2017-09-07] MEDS: THIAMINE INJ 100 MG in SODIUM CHLORIDE 0.9% INJ 100 ML IV SCH (16:07)
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
--- NOTE | 2017-09-07 16:40 | ECHRPT ---
Indication: CARDIOMYOPATHY CONCLUSIONS The left ventricular systolic function is normal with an estimated ejection fraction in the range of 60-65%. Normal left ventricular size. Wall thickness is normal. No regional wall motion abnormalities are present. There is trace tricuspid valve regurgitation. The estimated pulmonary arterial pressure is 35.8 mmHg. BP: 170 / 100 HR: 123 Rhythm: Sinus MEASUREMENTS (Male / Female) Normal Values Technical Quality:Fair 2D ECHO LV Diastolic Diameter PLAX 4.9 cm 4.2 - 5.9 / 3.9 - 5.3 cm LV Systolic Diameter PLAX 3.1 cm IVS Diastolic Thickness 1.1 cm 0.6 - 1.0 / 0.6 - 0.9 cm LVPW Diastolic Thickness 1.1 cm 0.6 - 1.0 / 0.6 - 0.9 cm LV Relative Wall Thickness 0.4 RV Internal Dim ED PLAX 2.7 cm LVOT Diameter 2.0 cm LA Systolic Diameter LX 3.2 cm 3.0 - 4.0 / 2.7 - 3.8 cm M-MODE Aortic Root Diameter MM 3.3 cm LA Systolic Diameter MM 3.4 cm LA Ao Ratio MM 1.0 AV Cusp Separation MM 2.1 cm DOPPLER AV Peak Velocity 143.0 cm/s AV Peak Gradient 8.2 mmHg LVOT Peak Velocity 87.4 cm/s LVOT Peak Gradient 3.1 mmHg AV Area Cont Eq pk 1.9 cm MV Area PHT 4.2 cm Mitral E Point Velocity 75.5 cm/s Mitral A Point Velocity 90.8 cm/s Mitral E to A Ratio 0.8 LV E' Lateral Velocity 9.8 cm/s Mitral E to LV E' Lateral Ratio 7.7 LV E' Septal Velocity 6.2 cm/s Mitral E to LV E' Septal Ratio 12.1 TR Peak Velocity 254.0 cm/s TR Peak Gradient 25.8 mmHg Right Atrial Pressure 10.0 mmHg Pulmonary Artery Systolic Pressu 35.8 mmHg Right Ventricular Systolic Press 35.8 mmHg PV Peak Velocity 96.4 cm/s PV Peak Gradient 3.7 mmHg FINDINGS LEFT VENTRICLE The left ventricular systolic function is normal with an estimated ejection fraction in the range of 60-65%. Normal left ventricular size. Wall thickness is normal. No regional wall motion abnormalities are present. RIGHT VENTRICLE Normal right ventricular size and systolic function. LEFT ATRIUM The left atrial size is normal. RIGHT ATRIUM The right atrial size is normal. ATRIAL SEPTUM Normal atrial septal thickness without atrial level shunting by limited color doppler interrogation. AORTA The aortic root and proximal ascending aorta are normal in size on limited imaging. MITRAL VALVE Structurally normal mitral valve. No mitral valve stenosis or regurgitation. AORTIC VALVE Trileaflet aortic valve. No aortic valve stenosis or regurgitation. TRICUSPID VALVE Structurally normal tricuspid valve. There is trace tricuspid valve regurgitation. The estimated pulmonary arterial pressure is 35.8 mmHg. PULMONARY VALVE No pulmonary valve regurgitation or stenosis. VESSELS The inferior vena cava is normal in size. PERICARDIUM No pericardial effusion. George Mack MD, FACC (Electronically Signed) Final Date:07 September 2017 16:39
[2017-09-07] MEDS: MULTIVITAMIN INJ 10 ML, FOLIC ACID INJ 1 MG in SODIUM CHLORID 0.9% 500 ML INJ 500 ML IV SCH (17:07)
--- NOTE | 2017-09-07 18:49 | EKG ---
Date Performed: 09/07/2017 Time Performed: 09:50:41 PTAGE: 62 years EKG: Sinus rhythm NORMAL ECG PREVIOUS TRACING : 09/06/2017 10.24 Compared to prior tracing no significant change DOCTOR: Mary Gamboa Interpretating Date/Time 09/07/2017 18:48:28
[2017-09-08] VITALS (9 sets, daily range): BP systolic 158–199; BP diastolic 85–100; PULSE 65–96; RESP 17–22; TEMP 96.8–98.8; O2SAT 93–98
[2017-09-08] MEDS: ENALAPRILAT 2.5 MG/2 ML VIAL IV PUSH PRN ×2 (05:46→20:25)
[2017-09-08 07:22] LABS: AUTOMATED NEUTROPHIL # 4.1 TH/MM3 (1.8-7.7); BASOPHIL % 0.6 % (0.0-2.0); EOSINOPHIL # 0.1 TH/MM3 (0-0.4); HEMATOCRIT 42.4 % (39.0-51.0); HEMOGLOBIN 14.9 GM/DL (13.0-17.0); LYMPHOCYTE # 2.6 TH/MM3 (1.0-4.8); MEAN CELL VOLUME 95.4 FL (80.0-100.0); MEAN CORPUSCULAR HEMOGLOBIN 33.6 PG (27.0-34.0); MEAN CORPUSCULAR HGB CONC 35.2 % (32.0-36.0); MEAN PLATELET VOLUME 8.3 FL (7.0-11.0); MONO % 8.5 % (0.0-8.0); MONOCYTE # 0.6 TH/MM3 (0-0.9); NEUT % 54.9 % (16.0-70.0); PLATELET COUNT 140 TH/MM3 (150-450); RED BLOOD COUNT 4.44 MIL/MM3 (4.50-5.90); RED CELL DISTRIBUTION WIDTH 13.4 % (11.6-17.2); WHITE BLOOD COUNT 7.5 TH/MM3 (4.0-11.0)
[2017-09-08 07:40] LABS: ALBUMIN 3.1 GM/DL (3.4-5.0); ALT (GPT) 223 U/L (12-78); AST (GOT) 312 U/L (15-37); BLOOD UREA NITROGEN 19 MG/DL (7-18); CALCIUM 8.2 MG/DL (8.5-10.1); CHLORIDE 110 MEQ/L (98-107); CREATININE 1.41 MG/DL (0.60-1.30); GLOMERULAR FILTRATION RATE 51 ML/MIN (>89); GLUCOSE,RANDOM 94 MG/DL (74-106); SODIUM (NA) 145 MEQ/L (136-145)
[2017-09-08 07:42] LABS: ALKALINE PHOSPHATASE 94 U/L (45-117); TOTAL BILIRUBIN ADULT 1.9 MG/DL (0.2-1.0); TOTAL PROTEIN 6.5 GM/DL (6.4-8.2)
[2017-09-08] MEDS: POTASSIUM CHLORIDE 20 MEQ CONTROLLED RELEASE TAB PO SCH ×3 (07:59→17:44)
[2017-09-08] MEDS: LISINOPRIL 10 MG TAB PO SCH (08:00)
[2017-09-08] MEDS: DOCUSATE SODIUM 50 MG/SENNA 8.6 MG TAB PO SCH ×2 (08:01→20:27)
[2017-09-08] MEDS: SODIUM CHLORIDE 0.9% FLUSH 10 ML FLUSH IV FLUSH SCH ×2 (08:01→20:27)
[2017-09-08] MEDS: POTASSIUM CHLORIDE INJ 10 MEQ in SODIUM CHLOR 0.9% 1000 ML INJ 1,000 ML IV SCH ×2 (08:01→10:17)
--- NOTE | 2017-09-08 08:06 | PD.CARD.PN ---
Subjective Subjective Remarks Feels OK. Anxious to ambulate. Objective Medications Current Medications Medications (Trade) Dose Ordered Sig/Rosendo Route Start Time Stop Time Status Last Admin (NS Flush) 2 ml UNSCH PRN IV FLUSH 09/06/17 14:15 (NS Flush) 2 ml BID IV FLUSH 09/06/17 21:00 09/08/17 08:01 (Zofran Inj) 4 mg Q6H PRN IVP 09/06/17 14:15 (Narcan Inj) 0.4 mg UNSCH PRN IV PUSH 09/06/17 14:15 (Elvira-Colace) 1 tab BID PO 09/06/17 21:00 09/08/17 08:01 (Milk Of Magnesia Liq) 30 ml Q12H PRN PO 09/06/17 14:15 (Senokot) 17.2 mg Q12H PRN PO 09/06/17 14:15 (Dulcolax Supp) 10 mg DAILY PRN RECTAL 09/06/17 14:15 (Lactulose Liq) 30 ml DAILY PRN PO 09/06/17 14:15 (Romazicon Inj) 0.2 mg Q1M PRN IV PUSH 09/06/17 14:15 (Ativan) 1 mg Q4H PRN PO 09/06/17 14:15 (Ativan Inj) 1 mg Q4H PRN IV PUSH 09/06/17 14:15 (Ativan) 2 mg Q2H PRN PO 09/06/17 14:15 (Ativan Inj) 2 mg Q2H PRN IV PUSH 09/06/17 14:15 (Ativan Inj) 2 mg Q1H PRN IV PUSH 09/06/17 14:15 (Ativan Inj) 2 mg Q15M PRN IV PUSH 09/06/17 14:15 (Morphine Inj) 4 mg Q3H PRN IV PUSH 09/06/17 14:45 09/07/17 11:42 (Morphine Inj) 4 mg Q1H PRN IV PUSH 09/06/17 14:45 (Roxicodone) 5 mg Q4H PRN PO 09/06/17 14:45 09/08/17 08:00 (Narcan Inj) 0.4 mg UNSCH PRN IV PUSH 09/06/17 14:45 Multivitamins 10 ml/Folic Acid 1 mg/Sodium Chloride 510.2 ml @ 125 mls/hr Q24H IV 09/06/17 18:00 09/11/17 17:59 09/07/17 17:07 Thiamine HCl 100 mg/Sodium Chloride 101 ml @ 100 mls/hr Q24H IV 09/06/17 17:00 09/09/17 16:59 09/07/17 16:07 (Vitamin B1) 100 mg DAILY PO 09/10/17 09:00 Potassium Chloride 10 meq/ Sodium Chloride 1,005 ml @ 125 mls/hr Q8H3M IV 09/06/17 16:00 09/07/17 23:28 (Vasotec Inj) 2.5 mg Q6H PRN IV PUSH 09/07/17 10:00 09/08/17 05:46 (KCl) 20 meq TID PO 09/07/17 13:00 09/08/17 07:59 (Prinivil) 10 mg DAILY PO 09/07/17 12:15 09/07/17 12:39 Vital Signs / I&O Vital Signs Date Time Temp Pulse Resp B/P (MAP) Pulse Ox O2 Delivery O2 Flow Rate FiO2 09/08/17 07:45 178/98 (124) 09/08/17 04:00 98.1 65 22 199/100 (133) 98 09/08/17 00:00 98.1 74 21 176/97 (123) 93 09/07/17 20:00 98.0 71 22 192/96 (128) 95 09/07/17 19:26 21 09/07/17 16:47 97.9 88 17 190/94 (126) 95 09/07/17 16:20 158/98 (118) 09/07/17 16:05 66 09/07/17 12:42 170/100 (123) 09/07/17 12:39 97.8 73 18 178/98 (124) 95 09/07/17 12:15 72 09/07/17 08:28 98.0 75 18 186/99 (128) 94 I/O 09/07/17 09/07/17 09/07/17 09/08/17 09/08/17 09/08/17 07:00 15:00 23:00 07:00 15:00 23:00 Intake Total 600 ml 580 ml Output Total 300 ml 200 ml 1010 ml 300 ml Balance 300 ml -200 ml -430 ml -300 ml Intake Oral 480 ml IV Total 600 ml 100 ml Output Urine Total 300 ml 200 ml 1010 ml 300 ml # Bowel Movements 0 0 Physical Exam Lungs clear RRR no murmur Laboratory Laboratory Tests Test 09/07/17 10:45 09/08/17 06:55 White Blood Count 10.0 TH/MM3 7.5 TH/MM3 Red Blood Count 4.79 MIL/MM3 4.44 MIL/MM3 Hemoglobin 16.0 GM/DL 14.9 GM/DL Hematocrit 45.7 % 42.4 % Mean Corpuscular Volume 95.5 FL 95.4 FL Mean Corpuscular Hemoglobin 33.4 PG 33.6 PG Mean Corpuscular Hemoglobin Concent 35.0 % 35.2 % Red Cell Distribution Width 13.4 % 13.4 % Platelet Count 167 TH/MM3 140 TH/MM3 Mean Platelet Volume 8.1 FL 8.3 FL Neutrophils (%) (Auto) 58.8 % 54.9 % Lymphocytes (%) (Auto) 31.3 % 35.0 % Monocytes (%) (Auto) 9.0 % 8.5 % Eosinophils (%) (Auto) 0.1 % 1.0 % Basophils (%) (Auto) 0.8 % 0.6 % Neutrophils # (Auto) 5.8 TH/MM3 4.1 TH/MM3 Lymphocytes # (Auto) 3.1 TH/MM3 2.6 TH/MM3 Monocytes # (Auto) 0.9 TH/MM3 0.6 TH/MM3 Eosinophils # (Auto) 0.0 TH/MM3 0.1 TH/MM3 Basophils # (Auto) 0.1 TH/MM3 0.0 TH/MM3 CBC Comment DIFF FINAL DIFF FINAL Differential Comment Phosphorus Level 2.9 MG/DL Magnesium Level 2.2 MG/DL Troponin I LESS THAN 0.02 NG/ML Hepatitis A IgM Antibody NEGATIVE Hepatitis B Surface Antigen NEGATIVE Hepatitis B Core IgM Antibody NEGATIVE Hepatitis C Antibody REACTIVE Blood Urea Nitrogen 19 MG/DL Creatinine 1.41 MG/DL Random Glucose 94 MG/DL Total Protein 6.5 GM/DL Albumin 3.1 GM/DL Calcium Level 8.2 MG/DL Alkaline Phosphatase 94 U/L Aspartate Amino Transf (AST/SGOT) 312 U/L Alanine Aminotransferase (ALT/SGPT) 223 U/L Total Bilirubin 1.9 MG/DL Sodium Level 145 MEQ/L Potassium Level 3.3 MEQ/L Chloride Level 110 MEQ/L Carbon Dioxide Level 28.0 MEQ/L Anion Gap 7 MEQ/L Estimat Glomerular Filtration Rate 51 ML/MIN Assessment and Plan Assessment and Plan Echo demonstrates normal LV function. BP still elevated will maximize lisinopril and add amlodipine. K+ 3.3. Continue replacement Kelton Solo MD Sep 08, 2017 08:06
[2017-09-08] MEDS ORDERED: LISINOPRIL 10 MG TAB PO SCH (09:00)
--- NOTE | 2017-09-08 10:37 | HHI.NSPN ---
(Dianne Coronado) Note Status Status: Progress Note (Dianne Coronado) Status: Progress Note (Dimitris Moraes MD) Interval History Interval History Mr. Zuleta is a 62-year-old male with a history of alcohol abuse and seizure disorder. He has been heavily drinking, there is report of generalized shaking and loss of consciousness with a ground-level fall. His sister found the patient on the floor this oriented. He was taken to [facility] ED and workup shows a nondisplaced odontoid fracture through base of the dens, MRI C- spine without evidence of cord compromise. He is currently immobilized by a hard collar. He complains of some cervical pain which is controlled. He denies focal weakness, dysesthesias to his extremities, bowel or bladder incontinence, fevers or chills. Neurosurgical evaluation is requested. 09/08: reports to be doing ok, moderate neck pain but controlled with medications. (Dianne Coronado) Labs, Micro, & Vital Signs Results Date Time Temp Pulse Resp B/P (MAP) Pulse Ox O2 Delivery O2 Flow Rate FiO2 09/08/17 09:20 95 09/08/17 08:00 96.8 69 18 95 09/08/17 07:45 178/98 (124) 09/08/17 04:00 98.1 65 22 199/100 (133) 98 09/08/17 00:00 98.1 74 21 176/97 (123) 93 09/07/17 20:00 98.0 71 22 192/96 (128) 95 09/07/17 19:26 21 09/07/17 16:47 97.9 88 17 190/94 (126) 95 09/07/17 16:20 158/98 (118) 09/07/17 16:05 66 09/07/17 12:42 170/100 (123) 09/07/17 12:39 97.8 73 18 178/98 (124) 95 09/07/17 12:15 72 09/09/17 06:59 Intake Total 1000 ml Output Total 300 ml Balance 700 ml Constitutional Vital Signs Date Time Temp Pulse Resp B/P (MAP) Pulse Ox O2 Delivery O2 Flow Rate FiO2 09/08/17 09:20 95 09/08/17 08:00 96.8 69 18 95 09/08/17 07:45 178/98 (124) 09/08/17 04:00 98.1 65 22 199/100 (133) 98 09/08/17 00:00 98.1 74 21 176/97 (123) 93 09/07/17 20:00 98.0 71 22 192/96 (128) 95 09/07/17 19:26 21 09/07/17 16:47 97.9 88 17 190/94 (126) 95 09/07/17 16:20 158/98 (118) 09/07/17 16:05 66 09/07/17 12:42 170/100 (123) 09/07/17 12:39 97.8 73 18 178/98 (124) 95 09/07/17 12:15 72 09/09/17 06:59 Intake Total 1000 ml Output Total 300 ml Balance 700 ml (Dianne Coronado) Review of Systems Musculoskeletal: COMPLAINS OF: Neck pain Neurologic: DENIES: Localized weakness (Dianne Coronado) Physical Exam Mr. Zuleta is alert, awake and oriented to time, place and person. Speech is fluent. Follows commands well. Cranial nerve examination demonstrates the pupils to be equal, round, and reactive to light. Extra-ocular movements are intact. Facial motor and sensory function are normal and symmetrical. Neck immobilized by Yocha Dehe J collar Muscle testing reveals normal bulk and tone overall without rigidity, spasticity , fasciculations, or atrophy. Muscle strength is 5/5 in all muscle groups of both upper extremities including deltoid, biceps, triceps, brachioradialis, wrist extension and head of product. In the lower extremities, strength is 5/5 in both iliopsoas, quadriceps, hamstrings, plantar flexion, dorsiflexion, and extensor hallicus longus. He has missing toes #3-5 left foot. Sensory examination is intact to light touch in both the upper and lower extremities, symmetrically. Deep tendon reflexes are 2+ and symmetrical in the biceps, triceps, and brachioradialis, bilaterally, in the upper extremities. In the lower extremities , the patellar and Achilles are 2+, bilaterally. There is a bilateral plantar flexion response. Hoffmanns sign is negative. There is no clonus. Cerebellar examination is intact to [id number] test (Dianne Coronado) Mr. Zuleta is alert, awake and oriented to time, place and person. Speech is fluent. Follows commands well. Cranial nerve examination demonstrates the pupils to be equal, round, and reactive to light. Extra-ocular movements are intact. Facial motor and sensory function are normal and symmetrical. Neck immobilized by Yocha Dehe J collar Muscle testing reveals normal bulk and tone overall without rigidity, spasticity , fasciculations, or atrophy. Muscle strength is 5/5 in all muscle groups of both upper extremities including deltoid, biceps, triceps, brachioradialis, wrist extension and head of product. In the lower extremities, strength is 5/5 in both iliopsoas, quadriceps, hamstrings, plantar flexion, dorsiflexion, and extensor hallicus longus. He has missing toes #3-5 left foot. Sensory examination is intact to light touch in both the upper and lower extremities, symmetrically. Deep tendon reflexes are 2+ and symmetrical in the biceps, triceps, and brachioradialis, bilaterally, in the upper extremities. In the lower extremities , the patellar and Achilles are 2+, bilaterally. There is a bilateral plantar flexion response. Hoffmanns sign is negative. There is no clonus. Cerebellar examination is intact to [id number] test SKIN: Warm and dry. CARDIOVASCULAR: regular RESPIRATORY: Clear, nonlabored breathing (Dimitris Moraes MD) Medications Current Medications Current Medications Medications (Trade) Dose Ordered Sig/Rosendo Route PRN Reason Start Time Stop Time Status Last Admin Dose Admin Sodium Chloride (NS Flush) 2 ml UNSCH PRN IV FLUSH FLUSH AFTER USING IV ACCESS 09/06/17 14:15 Sodium Chloride (NS Flush) 2 ml BID IV FLUSH 09/06/17 21:00 09/08/17 08:01 Ondansetron HCl (Zofran Inj) 4 mg Q6H PRN IVP NAUSEA OR VOMITING 09/06/17 14:15 Naloxone HCl (Narcan Inj) 0.4 mg UNSCH PRN IV PUSH SEE LABEL COMMENTS 09/06/17 14:15 Senna/Docusate Sodium (Elvira-Colace) 1 tab BID PO 09/06/17 21:00 09/08/17 08:01 Magnesium Hydroxide (Milk Of Magnesia Liq) 30 ml Q12H PRN PO Mild constipation 09/06/17 14:15 Sennosides (Senokot) 17.2 mg Q12H PRN PO Moderate constipation 09/06/17 14:15 Bisacodyl (Dulcolax Supp) 10 mg DAILY PRN RECTAL SEVERE CONSITIPATION 09/06/17 14:15 Lactulose (Lactulose Liq) 30 ml DAILY PRN PO SEVERE CONSITIPATION 09/06/17 14:15 Flumazenil (Romazicon Inj) 0.2 mg Q1M PRN IV PUSH SEE LABEL COMMENTS 09/06/17 14:15 Lorazepam (Ativan) 1 mg Q4H PRN PO CIWA 8 - 10 09/06/17 14:15 Lorazepam (Ativan Inj) 1 mg Q4H PRN IV PUSH CIWA 8 - 10 09/06/17 14:15 Lorazepam (Ativan) 2 mg Q2H PRN PO CIWA 11-14 09/06/17 14:15 Lorazepam (Ativan Inj) 2 mg Q2H PRN IV PUSH CIWA 11-14 09/06/17 14:15 Lorazepam (Ativan Inj) 2 mg Q1H PRN IV PUSH CIWA 15-20 09/06/17 14:15 Lorazepam (Ativan Inj) 2 mg Q15M PRN IV PUSH CIWA > 20 09/06/17 14:15 Morphine Sulfate (Morphine Inj) 4 mg Q3H PRN IV PUSH Pain 6-10;if unable to take PO 09/06/17 14:45 09/07/17 11:42 Morphine Sulfate (Morphine Inj) 4 mg Q1H PRN IV PUSH BREAKTHOUGH PAIN 09/06/17 14:45 Oxycodone HCl (Roxicodone) 5 mg Q4H PRN PO PAIN SCALE 3 TO 5 09/06/17 14:45 09/08/17 08:00 Naloxone HCl (Narcan Inj) 0.4 mg UNSCH PRN IV PUSH SEE LABEL COMMENTS 09/06/17 14:45 Multivitamins 10 ml/Folic Acid 1 mg/Sodium Chloride 510.2 ml @ 125 mls/hr Q24H IV 09/06/17 18:00 09/11/17 17:59 09/07/17 17:07 Thiamine HCl 100 mg/Sodium Chloride 101 ml @ 100 mls/hr Q24H IV 09/06/17 17:00 09/09/17 16:59 09/07/17 16:07 Thiamine HCl (Vitamin B1) 100 mg DAILY PO 09/10/17 09:00 Potassium Chloride 10 meq/ Sodium Chloride 1,005 ml @ 125 mls/hr Q8H3M IV 09/06/17 16:00 09/08/17 10:17 Enalaprilat (Vasotec Inj) 2.5 mg Q6H PRN IV PUSH SBP>160, DBP>90 09/07/17 10:00 09/08/17 05:46 Potassium Chloride (KCl) 20 meq TID PO 09/07/17 13:00 09/08/17 07:59 Lisinopril (Prinivil) 20 mg DAILY PO 09/08/17 09:00 09/08/17 08:16 Amlodipine Besylate (Norvasc) 10 mg DAILY PO 09/08/17 09:00 09/08/17 08:16 (Dianne Coronado) Current Medications Current Medications Labetalol HCl (Trandate Inj) 20 mg ONCE ONCE IV PUSH Last administered on at 11:36; Start 09/06/17 at 11:30; Stop 09/06/17 at 11:31; Status DC Lorazepam (Ativan Inj) 0.5 mg ONCE ONCE IV PUSH Last administered on 09/06/17at 11:49; Start 09/06/17 at 11:45; Stop 09/06/17 at 11:46; Status DC Sodium Chloride (NS Flush) 2 ml UNSCH PRN IV FLUSH FLUSH AFTER USING IV ACCESS ; Start 09/06/17 at 14:15; Stop 09/09/17 at 13:35; Status DC Sodium Chloride (NS Flush) 2 ml BID IV FLUSH Last administered on 09/08/17at 20: 27; Start 09/06/17 at 21:00; Stop 09/09/17 at 13:35; Status DC Ondansetron HCl (Zofran Inj) 4 mg Q6H PRN IVP NAUSEA OR VOMITING; Start at 14:15; Stop 09/09/17 at 13:35; Status DC Naloxone HCl (Narcan Inj) 0.4 mg UNSCH PRN IV PUSH SEE LABEL COMMENTS; Start at 14:15; Stop 09/09/17 at 13:35; Status DC Senna/Docusate Sodium (Elvira-Colace) 1 tab BID PO Last administered on at 07:26; Start 09/06/17 at 21:00; Stop 09/09/17 at 13:35; Status DC Magnesium Hydroxide (Milk Of Magnesia Liq) 30 ml Q12H PRN PO Mild constipation ; Start 09/06/17 at 14:15; Stop 09/09/17 at 13:35; Status DC Sennosides (Senokot) 17.2 mg Q12H PRN PO Moderate constipation; Start 09/06/17 at 14:15; Stop 09/09/17 at 13:35; Status DC Bisacodyl (Dulcolax Supp) 10 mg DAILY PRN RECTAL SEVERE CONSITIPATION; Start at 14:15; Stop 09/09/17 at 13:35; Status DC Lactulose (Lactulose Liq) 30 ml DAILY PRN PO SEVERE CONSITIPATION; Start at 14:15; Stop 09/09/17 at 13:35; Status DC Flumazenil (Romazicon Inj) 0.2 mg Q1M PRN IV PUSH SEE LABEL COMMENTS; Start 09/06/17 at 14:15; Stop 09/09/17 at 13:35; Status DC Lorazepam (Ativan) 1 mg Q4H PRN PO CIWA 8 - 10; Start 09/06/17 at 14:15; Stop at 13:35; Status DC Lorazepam (Ativan Inj) 1 mg Q4H PRN IV PUSH CIWA 8 - 10; Start 09/06/17 at 14:15 ; Stop 09/09/17 at 13:35; Status DC Lorazepam (Ativan) 2 mg Q2H PRN PO CIWA 11-14; Start 09/06/17 at 14:15; Stop 06/17 at 13:35; Status DC Lorazepam (Ativan Inj) 2 mg Q2H PRN IV PUSH CIWA 11-14; Start 09/06/17 at 14:15 ; Stop 09/09/17 at 13:35; Status DC Lorazepam (Ativan Inj) 2 mg Q1H PRN IV PUSH CIWA 15-20; Start 09/06/17 at 14:15 ; Stop 09/09/17 at 13:35; Status DC Lorazepam (Ativan Inj) 2 mg Q15M PRN IV PUSH CIWA > 20; Start 09/06/17 at 14:15 ; Stop 09/09/17 at 13:35; Status DC Morphine Sulfate (Morphine Inj) 4 mg Q3H PRN IV PUSH Pain 6-10;if unable to take PO Last administered on 09/07/17at 11:42; Start 09/06/17 at 14:45; Stop at 13:35; Status DC Morphine Sulfate (Morphine Inj) 4 mg Q1H PRN IV PUSH BREAKTHOUGH PAIN; Start at 14:45; Stop 09/09/17 at 13:35; Status DC Oxycodone HCl (Roxicodone) 5 mg Q4H PRN PO PAIN SCALE 3 TO 5 Last administered on 09/09/17at 04:11; Start 09/06/17 at 14:45; Stop 09/09/17 at 13:35; Status DC Naloxone HCl (Narcan Inj) 0.4 mg UNSCH PRN IV PUSH SEE LABEL COMMENTS; Start at 14:45; Stop 09/09/17 at 13:35; Status DC Enalaprilat (Vasotec Inj) 2.5 mg Q8H PRN IV PUSH SBP> OR = 180, DBP> OR = 100; Start 09/06/17 at 15:00; Stop 09/06/17 at 15:07; Status DC Hydralazine HCl (Apresoline Inj) 20 mg Q4H PRN IV PUSH SBP>180, DBP>100, HR>65 Last administered on 09/06/17at 22:24; Start 09/06/17 at 16:00; Stop 09/06/17 at 23: 40; Status DC Sodium Chloride 1,000 ml @ 125 mls/hr Q8H IV ; Start 09/06/17 at 15:15; Stop 09/06/17 at 15:28; Status DC Multivitamins 10 ml/Folic Acid 1 mg/Sodium Chloride 510.2 ml @ 125 mls/hr Q24H IV Last administered on 09/08/17at 17:44; Start 09/06/17 at 18:00; Stop 09/09/17 at 13:35; Status DC Thiamine HCl 100 mg/Sodium Chloride 101 ml @ 100 mls/hr Q24H IV Last administered on 09/08/17at 16:32; Start 09/06/17 at 17:00; Stop 09/09/17 at 13:35; Status DC Thiamine HCl (Vitamin B1) 100 mg DAILY PO ; Start 09/10/17 at 09:00; Stop at 09:00; Status DC Potassium Chloride 10 meq/ Sodium Chloride 1,005 ml @ 125 mls/hr Q8H3M IV Last administered on 09/09/17at 03:57; Start 09/06/17 at 16:00; Stop 09/09/17 at 13:35; Status DC Clonidine (Catapres) 0.1 mg Q6H PRN PO SBP>180, DBP>95 Last administered on 09/07at 08:07; Start 09/06/17 at 23:45; Stop 09/07/17 at 09:57; Status DC Labetalol HCl (Trandate Inj) 20 mg BID IV PUSH ; Start 09/07/17 at 09:00; Stop at 09:54; Status DC Enalaprilat (Vasotec Inj) 2.5 mg Q6H PRN IV PUSH SBP>160, DBP>90 Last administered on 09/08/17at 20:25; Start 09/07/17 at 10:00; Stop 09/09/17 at 13:35; Status DC Potassium Chloride (KCl) 20 meq TID PO Last administered on 09/09/17at 12:05; Start 09/07/17 at 13:00; Stop 09/09/17 at 13:35; Status DC Lisinopril (Prinivil) 10 mg DAILY PO Last administered on 09/07/17at 12:39; Start 09/07/17 at 12:15; Stop 09/08/17 at 08:04; Status DC Lisinopril (Prinivil) 20 mg DAILY PO Last administered on 09/08/17at 08:16; Start 09/08/17 at 09:00; Stop 09/09/17 at 07:23; Status DC Amlodipine Besylate (Norvasc) 10 mg DAILY PO Last administered on 09/09/17at 07: 26; Start 09/08/17 at 09:00; Stop 09/09/17 at 13:35; Status DC Lisinopril (Prinivil) 40 mg DAILY PO Last administered on 09/09/17at 07:30; Start 09/09/17 at 09:00; Stop 09/09/17 at 13:35; Status DC (Dimitris Moraes MD) Medical Decision Making MDM Remarks 62 year old male s/p syncope, ground level fall, possible seizures C2 fracture, stable etoh abuse (Dinane Coronado) Plan Plan Remarks cont nonoperative mgt of C2 fracture with cervical collar, to wear at all times cont medical mgt PT, ok mobilize OOB from NRS standpoint discussed with patient plan of care (Dianne Coronado) Attending Statement Continue supportive care and Yocha Dehe J collar Continue neuro checks. Pulmonary.. Continue aggressive pulmonary toilette, nasotracheal suction, and breathing treatments with nebulizers. Nutrition. NPO Renal. monitor closely urine output, BUN and creatinine Endocrine. Monitor serial Acu checks and SSI as needed in detail ID monitor for signs of infection Protonix for stress ulcer prophylaxis Inocencio hose and SCD's for DVT prophylaxis. The exam, history, and the medical decision-making described in the above note were completed with the assistance of the mid-level provider. I reviewed and agree with the findings presented. I attest that I had a [id number] encounter with the patient on the same day, and personally performed and documented my assessment and findings in the medical record. (Dimitris Moraes MD) Dianne Coronado Sep 08, 2017 10:37 Dimitris Moraes MD Sep 13, 2017 10:11
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
[2017-09-08] MEDS ORDERED: WALKER WHEELS/F1 MIS (16:00)
[2017-09-08] MEDS: THIAMINE INJ 100 MG in SODIUM CHLORIDE 0.9% INJ 100 ML IV SCH (16:32)
[2017-09-08] MEDS: MULTIVITAMIN INJ 10 ML, FOLIC ACID INJ 1 MG in SODIUM CHLORID 0.9% 500 ML INJ 500 ML IV SCH (17:44)
[2017-09-09] VITALS: BP 184/96; PULSE 74; RESP 20; TEMP 98.2; O2SAT 96
[2017-09-09] MEDS: POTASSIUM CHLORIDE INJ 10 MEQ in SODIUM CHLOR 0.9% 1000 ML INJ 1,000 ML IV SCH ×2 (03:57→07:26)
[2017-09-09 04:00] VITALS: BP 172/78; PULSE 64; RESP 18; TEMP 98.3; O2SAT 94
[2017-09-09] MEDS: SODIUM CHLORIDE 0.9% FLUSH 10 ML FLUSH IV FLUSH SCH (07:24)
[2017-09-09] MEDS: DOCUSATE SODIUM 50 MG/SENNA 8.6 MG TAB PO SCH (07:26)
[2017-09-09] MEDS: POTASSIUM CHLORIDE 20 MEQ CONTROLLED RELEASE TAB PO SCH ×2 (07:26→12:05)
[2017-09-09 07:55] VITALS: BP 160/80; PULSE 87; RESP 18; TEMP 98.3; O2SAT 96
[2017-09-09 08:35] LABS: BICARBONATE 28.7 MEQ/L (21.0-32.0); CALCIUM 8.4 MG/DL (8.5-10.1)
[2017-09-09 08:50] VITALS: PULSE 66
[2017-09-09] MEDS ORDERED: LISINOPRIL 20 MG TAB PO SCH (09:00)
[2017-09-09] MEDS ORDERED: OXYC-392 PO (11:01)
[2017-09-09] MEDS ORDERED: LISI-515 PO (11:01)
[2017-09-09] MEDS ORDERED: AMLO10 PO (11:01)
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
[2017-09-09 12:00] VITALS: PULSE 77; TEMP 97.9
--- NOTE | 2017-09-09 12:12 | HHI.DCPOC ---
Discharge Care Plan Diagnosis: (1) Hypertension (2) Syncope (3) Odontoid fracture with type III morphology (4) Alcohol withdrawal seizure with complication Goals to Promote Your Health * To prevent worsening of your condition and complications * To maintain your health at the optimal level Directions to Meet Your Goals Take your medications as prescribed Follow your dietary instruction Follow activity as directed Keep your appointments as scheduled Take your immunizations and boosters as scheduled If your symptoms worsen call your PCP, if no PCP go to Urgent Care Center or Emergency Room Smoking is Dangerous to Your Health. Avoid second hand smoke Call the 24-hour hour crisis hotline for domestic abuse at Panda Leblanc MD, R1 Sep 09, 2017 12:12
[2017-09-10] MEDS ORDERED: THIAMINE HCL 100 MG TAB PO SCH (09:00)
== END 2017-09-09 13:35 | disposition home or self-care (01) | DRG 896 ==
LOC: NEPC 10:12 → NEDA 12:50 → N05A 17:05
PROVIDERS: ADMIT Family Medicine; ATTEND Family Medicine
DX: F10.239 Alcohol dependence with withdrawal, unspecified (principal); S06.5X0A Traumatic subdural hemorrhage without loss of consciousness, initial encounter; S12.112A Nondisplaced Type II dens fracture, initial encounter for closed fracture; K74.60 Unspecified cirrhosis of liver; I10 Essential (primary) hypertension; R55 Syncope and collapse; W19.XXXA Unspecified fall, initial encounter; Y93.9 Activity, unspecified; Y92.9 Unspecified place or not applicable; E87.6 Hypokalemia; B19.20 Unspecified viral hepatitis C without hepatic coma; Z83.3 Family history of diabetes mellitus; Z80.42 Family history of malignant neoplasm of prostate; Z80.49 Family history of malignant neoplasm of other genital organs; Z80.3 Family history of malignant neoplasm of breast; Z66 Do not resuscitate; I45.9 Conduction disorder, unspecified; M54.5 Low back pain; Z91.14 Patient's other noncompliance with medication regimen
CPT/HCPCS: 70450; 71045; 72125; 72131; 72141; 72170; 74176; 80048; 80053; 80074; 80307; 81001; 83735; 84100; 84484; 85014; 85018; 85025; 85610; 85730; 93005; 93306; 96374; 96375; J0360; J2060; J2270; J3411; J3480; J7030; J7040; L0150; L0172

== ENCOUNTER 2017-09-25 09:21 | Emergency (ER) | payer SELFPAY ==
[~2017-09-25] VITALS: Ht 175.3 cm; Wt 94.5 kg
[~2017-09-25 09:21] MED LIST changes: -ADVI200C9; +AMLO10 PO; +LISI-515 PO; +OXYC-392 PO; +WALKER WHEELS/F1 MIS
[2017-09-25 09:23] VITALS: BP 158/99; PULSE 95; RESP 16; TEMP 98; O2SAT 96
--- NOTE | 2017-09-25 10:49 | PD ---
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 The patient had a syncopal episode in August, was seen in the emergency department and admitted to the hospital for type III odontoid fracture. The patient was seen by Dr. Moraes and discharged home. However, the patient states his other cervical collar was bothering him and he was sent to the emergency department by Dr. Moraes office for replacement with a [employer] collar. The collar was replaced in the waiting room by the signal technician, his symptoms of discomfort have improved. He denies any new neck pain and denies any acute weakness or numbness of the upper or lower extremities. He is currently asymptomatic. PFSH Past Medical History Autoimmune Disease: No Bipolar Disorder: Yes Cardiovascular Problems: Yes Diminished Hearing: No Hepatitis: Yes (HEP C) Hypertension: Yes Past Surgical History Abdominal Surgery: Yes (SPLEEN REMOVED) Cardiac Surgery: No Ear Surgery: No Endocrine Surgery: No Eye Surgery: No Genitourinary Surgery: No Gynecologic Surgery: No Oral Surgery: No Thoracic Surgery: No Other Surgery: Yes Social History Alcohol Use: Yes Tobacco Use: No Substance Use: Yes (HX COCAINE & CRACK (NOT TOO LONG AGO)) Allergies-Medications (Allergen,Severity, Reaction): Coded Allergies: meperidine (Unverified Allergy, Severe, Nausea/Vomiting, 09/25/17) Reported Meds & Prescriptions Reported Meds & Active Scripts Active Norvasc (Amlodipine Besylate) 10 Mg Tab 10 Mg PO DAILY Lisinopril 20 Mg Tab 40 Mg PO DAILY Oxycodone (Oxycodone HCl) 5 Mg Tab 5 Mg PO Q8HR PRN Walker with Front Wheels (Device) 1 Mis Mis Ea .ROUTE DIRECTED Review of Systems Except as stated in HPI: all other systems reviewed are Neg HENT: Positive: Neck Pain (history of recent type III odontoid fracture), No: Headaches Musculoskeletal: No: Weakness Neurologic: No: Paresthesia, Sensory Disturbance Physical Exam Narrative GENERAL: Awake, alert, pleasant 62-year-old male who appears his stated age and is in no acute respiratory distress. SKIN: Focused skin assessment warm/dry. HEAD: Atraumatic. Normocephalic. EYES: No injection or drainage. NECK: Trachea midline. No JVD. [employer] collar in place. CARDIOVASCULAR: Regular rate and rhythm. No murmur appreciated. RESPIRATORY: No accessory muscle use. Clear to auscultation. Breath sounds equal bilaterally. MUSCULOSKELETAL: No obvious deformities. No clubbing. No cyanosis. No edema. Able to ambulate without difficulty. NEUROLOGICAL: Awake and alert. No obvious cranial nerve deficits. Motor grossly within normal limits. Normal speech. Nonfocal. PSYCHIATRIC: Appropriate mood and affect; insight and judgment normal. Data Data Last Documented VS Vital Signs Date Time Temp Pulse Resp B/P (MAP) Pulse Ox O2 Delivery O2 Flow Rate FiO2 09/25/17 09:23 98.0 95 16 158/99 (118) 96 MDM Medical Decision Making Medical Screen Exam Complete: Yes Emergency Medical Condition: Yes Medical Record Reviewed: Yes Differential Diagnosis Differential diagnosis includes cervical collar malfunction, type III odontoid fracture, reevaluation. Narrative Course The patient's cervical collar was replaced by the signal technician, he had a new [employer] collar placed. He is currently asymptomatic. He will be discharged home and is advised to follow-up with a neurosurgeon. Return if symptoms worsen or progress. Diagnosis Primary Impression: Odontoid fracture Qualified Codes: S12.100D - Unspecified displaced fracture of second cervical vertebra, subsequent encounter for fracture with routine healing Patient Instructions: General Instructions Additional Instructions: Follow-up with your neurosurgeon. Return if symptoms worsen or progress. Collar as previously directed. Med/Other Pt SpecificInfo: No Change to Meds Disposition: 01 DISCHARGE HOME Condition: Stable Reynold Barahona MD Sep 25, 2017 10:49
== END 2017-09-25 11:21 | disposition home or self-care (01) ==
LOC: NEPD 09:21
DX: S12.100D Unspecified displaced fracture of second cervical vertebra, subsequent encounter for fracture with routine healing (principal); F31.9 Bipolar disorder, unspecified; I10 Essential (primary) hypertension; W18.30XD Fall on same level, unspecified, subsequent encounter; Z79.899 Other long term (current) drug therapy; Z86.19 Personal history of other infectious and parasitic diseases; Z88.8 Allergy status to other drugs, medicaments and biological substances
CPT/HCPCS: 99282; L0172